=== PATIENT | male | born 1980 | race Asian ===

== ENCOUNTER 2019-04-14 11:08 | Outpatient (CLI) | payer OTHER ==
[~2019-04-14 11:08] MED LIST: ALBU0.63 NEB; OMEP-110 PO
[2019-04-14] MEDS ORDERED: SPIR50TA PO (11:31)
[2019-04-14 12:01] LABS: INTERNATIONAL NORMALIZED RATIO 1.05 (0.93-1.1)
[2019-04-14 12:07] LABS: BASOPHILS # (AUTO) 0.03 x10^3/uL (0-0.1); BASOPHILS % (AUTO) 1 % (0-1); EOSINOPHILS % (AUTO) 3 % (1-7); LYMPHOCYTES # (AUTO) 1.12 x10^3/uL (1-3.4); LYMPHOCYTES % (AUTO) 19 % (22-44); MD NO; MEAN CORPUSCULAR HEMOGLOBIN 25.8 pg (27.5-34.5); MEAN CORPUSCULAR HGB CONC 31.2 g/dL (33.2-36.2); MEAN CORPUSCULAR VOLUME 82.6 fL (81-97); MEAN PLATELET VOLUME 9.7 fL (7.4-10.4); MONOCYTES # (AUTO) 0.49 x10^3/uL (0.2-0.8); MONOCYTES % (AUTO) 8 % (2-9); NEUTROPHILS % (AUTO) 69 % (42-75); PLATELET COUNT 201 x10^3/uL (130-400); RED BLOOD COUNT 6.62 x10^6/uL (4.38-5.82); RED CELL DISTRIBUTION WIDTH 18.3 % (9.4-14.8)
[2019-04-14 12:17] LABS: ANION GAP 6 mmol/L (5-15); CALCIUM 8.9 mg/dL (8.5-10.1); CHLORIDE 106 mmol/L (98-107)
[2019-04-14 12:20] LABS: CREATININE 0.91 mg/dL (0.7-1.3)
== END 2019-04-14 23:59 | disposition home or self-care (01) ==
LOC: STAR 11:08
PROVIDERS: ATTEND Internal Medicine Cardiovascular Disease
DX: Z01.818 Encounter for other preprocedural examination (principal); I27.9 Pulmonary heart disease, unspecified; J45.909 Unspecified asthma, uncomplicated; G47.30 Sleep apnea, unspecified
CPT/HCPCS: 36415; 80048; 83880; 85025; 85610

== ENCOUNTER 2019-04-21 06:21 | Day surgery (SDC) | payer OTHER ==
[2019-04-14 11:26] VITALS: BP 156/100
[~2019-04-21] VITALS: Ht 172.7 cm; Wt 115.9 kg
[~2019-04-21 06:21] MED LIST changes: +SPIR50TA PO
[2019-04-21] MEDS ORDERED: DIPHENHYDRAMINE 50 MG/ML, 1ML IVPush ONE (07:00)
[2019-04-21] MEDS ORDERED: VERAPAMIL 2.5 MG/ML, 2ML ONE (07:50)
[2019-04-21] MEDS ORDERED: FENTANYL PF 100 MCG/2ML ONE (07:50)
[2019-04-21] MEDS ORDERED: MIDAZOLAM 1 MG/ML, 5ML ONE (07:50)
[2019-04-21] MEDS ORDERED: HEPARIN 1,000 UNITS/ML, 10ML ONE (07:51)
[2019-04-21] MEDS ORDERED: NITROGLYCERIN 5 MG/ML, 10ML ONE (07:51)
[2019-04-21] MEDS ORDERED: LIDOCAINE-MPF 1%, 5ML ONE (07:51)
[2019-04-21] MEDS ORDERED: DIPHENHYDRAMINE 50 MG/ML, 1ML ONE (08:09)
[2019-04-21] MEDS ORDERED: SODIUM CHLORIDE 0.9% 1,000 ML IV SCH ×2 (09:22→11:00)
== END 2019-04-21 10:56 | disposition home or self-care (01) ==
LOC: CACL 06:21
PROVIDERS: ATTEND Internal Medicine Cardiovascular Disease
DX: I27.9 Pulmonary heart disease, unspecified (principal); J45.909 Unspecified asthma, uncomplicated; G47.30 Sleep apnea, unspecified; E66.3 Overweight; Z68.41 Body mass index [BMI] 40.0-44.9, adult; Z79.899 Other long term (current) drug therapy; Z91.010 Allergy to peanuts; Z83.3 Family history of diabetes mellitus; Z82.49 Family history of ischemic heart disease and other diseases of the circulatory system
CPT/HCPCS: 93460; 99156; 99157; C1769; C1894; J1200; J1644; J2250; J3010; Q9967

== ENCOUNTER → 2019-04-28 | Outpatient (CLI) | payer OTHER | END | disposition home or self-care (01) | LOC: CFH 11:57 | PROVIDERS: ATTEND Internal Medicine Cardiovascular Disease | DX: I51.7 Cardiomegaly (principal); J45.909 Unspecified asthma, uncomplicated; I28.8 Other diseases of pulmonary vessels; I27.9 Pulmonary heart disease, unspecified; Z82.5 Family history of asthma and other chronic lower respiratory diseases; Z82.49 Family history of ischemic heart disease and other diseases of the circulatory system | CPT/HCPCS: 71250 ==

== ENCOUNTER → 2019-07-21 | Outpatient (CLI) | payer OTHER ==
[~2019-07-21] MED LIST changes: +OMNIPAQUE 350 MG/ML, 100ML BOTTLE ONE
== END | disposition home or self-care (01) ==
LOC: CFH 09:57
PROVIDERS: ATTEND Nurse Practitioner Family
DX: R09.02 Hypoxemia (principal); M47.814 Spondylosis without myelopathy or radiculopathy, thoracic region
CPT/HCPCS: 71275; Q9967

== ENCOUNTER → 2020-11-08 | Outpatient (CLI) | payer OTHER ==
[~2020-11-08] MED LIST changes: -OMNIPAQUE 350 MG/ML, 100ML BOTTLE ONE
== END | disposition home or self-care (01) ==
LOC: CVU 09:56
PROVIDERS: ATTEND Internal Medicine Cardiovascular Disease
DX: I51.7 Cardiomegaly (principal); R06.02 Shortness of breath
CPT/HCPCS: 93306